=== PATIENT | female | born 2000 | race African-American/Black ===

== ENCOUNTER 2024-04-18 22:40 | Emergency (ER) | payer BC ==
[~2024-04-18] VITALS: Ht 152.4 cm; Wt 49.0 kg
[2024-04-18 22:42] VITALS: O2SAT 100
[2024-04-18 23:37] LABS: CLARITY URINE CLEAR (CLEAR); COLOR URINE YELLOW (YELLOW); GLUCOSE URINE NEGATIVE (NEGATIVE); KETONES URINE NEGATIVE (NEGATIVE); LEUKOCYTE ESTERASE URINE TRACE (NEGATIVE); NITRITE URINE NEGATIVE (NEGATIVE); OCCULT BLOOD URINE NEGATIVE (NEGATIVE); PROTEIN URINE NEGATIVE (NEGATIVE); SPECIFIC GRAVITY URINE 1.011 (1.005-1.030); UROBILINOGEN URINE 0.2 E.U./dL (0.2-1.0)
[2024-04-19] MEDS ORDERED: FLUC150T46 MT (00:42)
[2024-04-19 00:50] VITALS: BP 111/66; PULSE 75; RESP 16; TEMP 36.83628; O2SAT 100
[2024-04-19 01:16] LABS: SQUAMOUS EPITHELIAL CELL URINE 1+ /lpf (RARE/1+)
[2024-04-19 01:17] LABS: RBC URINE 0-2 /hpf (0-2); WBC URINE 0-2 /hpf (0-2)
[2024-04-19 01:18] LABS: BACTERIA URINE NONE SEEN
== END 2024-04-19 00:50 | disposition home or self-care (01) ==
LOC: ER 22:40
DX: B37.31 Acute candidiasis of vulva and vagina (principal)
CPT/HCPCS: 81003; 81025; 99283